=== PATIENT | female | born 1935 | race Caucasian/White ===

== ENCOUNTER → 2016-11-08 | Outpatient (CLI) | payer MEDICARE, BC ==
[~2016-11-08] MED LIST: ASPIR-LOW81 MG PO; ASPIRIN 32325 MG/TAB PO; ASPIRIN 81M81 MG/TA2 PO; BYSTOLIC2.5 MG PO; CALCIUM CITRATE1 TA2 PO; CALCIUM PLUS1 TA1 PO; CALTRATE 600 +1 TAB PO; CALTRATE PLUS1 TAB PO; CARDIZEM CD 12120 MG PO; CENTRUM SILVER1 CTB PO; CENTRUM SILVER1 TA1 PO; CLEOCIN HCL300 MG PO; CORDARONE200 MG/TAB PO; COUMADIN 3MG3 MG/TAB PO; FLAXSEED OIL1000 MG PO; LANOXIN 0.25M0.25 MG PO; LORTAB 5/500 501 TAB PO; NAPROSYN375 MG PO; NIASPAN 500MG500 MG PO; NORCO 325 MG-51 TAB PO; PACERONE400 MG PO; SUPER EPA 1201200 MG PO; SYNTHROID0.075 MG/T PO; TENEX1 MG PO; TENEX2 MG PO; XARELTO10 MG PO; ZETIA10 MG PO; welchol PO
== END ==
LOC: MC.RAD 13:16
DX: Z12.31 Encounter for screening mammogram for malignant neoplasm of breast (principal)

== ENCOUNTER → 2018-07-22 | Outpatient (CLI) | payer MEDICARE, BC | LOC: COL.RAD 13:53 | DX: R51 Headache (principal) ==

== ENCOUNTER → 2019-01-07 | Outpatient (CLI) | payer MEDICARE, BC | LOC: COL.RAD 12:50 | DX: S22.050A Wedge compression fracture of T5-T6 vertebra, initial encounter for closed fracture (principal) ==

== ENCOUNTER 2019-01-19 10:59 | Outpatient (CLI) | payer MEDICARE, BC ==
[2019-01-19] VITALS (7 sets, daily range): BP systolic 130–173; BP diastolic 63–86; PULSE 69–75; TEMP 97.8
[~2019-01-19] VITALS: Ht 152.5 cm; Wt 56.7 kg
[2019-01-19] MEDS ORDERED: [UNRECOGNIZED DRUG - OTHER] PO (11:50)
[2019-01-19] MEDS ORDERED: LEVODOPA PO (11:50)
[2019-01-19] MEDS ORDERED: TAMBOCOR50 MG PO (11:52)
[2019-01-19] MEDS ORDERED: MELATONIN5 M1 SL (11:53)
--- NOTE | 2019-01-19 12:45 | NUR ---
SEE MERGE REPORT FOR MEDICATION ADMINISTRATION TIMES WELL INTRA/POST SEDATION ASSESSMENTS.
--- NOTE | 2019-01-19 13:30 | NUR ---
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 VSS. Two bandaids to upper back CD&I.
--- NOTE | 2019-01-19 14:46 | NUR ---
INT discontinued intact. Discharge instructions given.
--- NOTE | 2019-01-19 15:00 | NUR ---
Transferred to private car by gilbert
== END 2019-01-19 15:02 | disposition home or self-care (01) ==
LOC: COL.CAR 10:59
DX: S22.050A Wedge compression fracture of T5-T6 vertebra, initial encounter for closed fracture (principal); Z90.710 Acquired absence of both cervix and uterus; Z88.1 Allergy status to other antibiotic agents; Z88.0 Allergy status to penicillin; Z88.8 Allergy status to other drugs, medicaments and biological substances; Z79.82 Long term (current) use of aspirin; I10 Essential (primary) hypertension; I48.91 Unspecified atrial fibrillation; M19.90 Unspecified osteoarthritis, unspecified site; G14 Postpolio syndrome; E03.9 Hypothyroidism, unspecified; E78.5 Hyperlipidemia, unspecified; I35.1 Nonrheumatic aortic (valve) insufficiency; Z90.722 Acquired absence of ovaries, bilateral; Z82.49 Family history of ischemic heart disease and other diseases of the circulatory system; Z80.0 Family history of malignant neoplasm of digestive organs; Z82.3 Family history of stroke; M54.2 Cervicalgia
CPT/HCPCS: J2250; J3010

== ENCOUNTER 2020-08-15 17:38 | Emergency (ER) | payer MEDICARE, BC ==
[~2020-08-15] VITALS: Ht 154.9 cm; Wt 61.8 kg
[~2020-08-15 17:38] MED LIST changes: +LEVODOPA PO; +MELATONIN5 M1 SL; +TAMBOCOR50 MG PO; +[UNRECOGNIZED DRUG - OTHER] PO
[2020-08-15 17:42] VITALS: TEMP 98
[2020-08-15 19:01] VITALS: BP 168/90; PULSE 78
== END 2020-08-15 19:03 | disposition home or self-care (01) ==
LOC: COL.ER 17:38
DX: S00.03XA Contusion of scalp, initial encounter (principal); G20 Parkinson's disease; Z88.0 Allergy status to penicillin; Z88.1 Allergy status to other antibiotic agents; Z88.8 Allergy status to other drugs, medicaments and biological substances; Z79.82 Long term (current) use of aspirin; W01.198A Fall on same level from slipping, tripping and stumbling with subsequent striking against other object, initial encounter; Y92.129 Unspecified place in nursing home as the place of occurrence of the external cause

== ENCOUNTER → 2021-10-09 | Outpatient (CLI) | payer MEDICARE, BC | LOC: ZCOL.LAB 16:46 | DX: N39.0 Urinary tract infection, site not specified (principal) ==

== ENCOUNTER → 2023-02-12 | Outpatient (CLI) | payer MEDICARE, BC ==
[~2023-02-12] MED LIST changes: +CARDIZEM CD 24240 MG PO; +CARDIZEM CD360 MG PO; +COMPLETE MULTI1 TAB PO; +CRANBERRY500 M3 PO; +DEBROX OT; +DULCOLAX S10 MG/SUPP RC; +ESTRACE0.1 MG/GM VG; +IMODIUM 2MG CAPS2 MG PO; +IPRATROPIUM BROM3 M1 IH; +LIDODERM 5% PATC1 EA TP; +MASON NATURAL2000 IU PO; +MELATONIN5 M1 PO; +MILK OF MA400 MG/52 PO; +MUCINEX 60600 MG/TA1 PO; +MYLANTA MAXIMU355 M1 PO; +OMNICEF 300MG300 MG PO; +PLAVIX 75MG TAB75 MG PO; +PROBIOTIC BLEN1 EACH PO; +SEROQUEL50 MG PO; +SINEMET 25/101 UDTAB PO; +SYNTHROID0.088 MG/T PO; +TAMBOCOR 1100 MG/TAB PO; +TYLENOL 325MG325 MG PO; +TYLENOL SU650 MG/SUP RC; +VOLTAREN GEL 1%1 TU TP; +ZADITOR 5 ML5 ML OP; +ZOLOFT 25MG25 MG PO; +ZOLOFT 50MG50 MG PO
[2023-02-12 10:05] LABS: BASO % 0.6 % (0.0-2.0); EOS # 0.3 K/mm3 (0.0-0.7); EOS % 4.1 % (0.0-4.0); GRAN # 4.3 K/mm3 (1.4-6.5); LYMPH # 1.2 K/mm3 (1.2-3.4); LYMPH % 18.9 % (20.0-51.0); MEAN CELL VOLUME 77 fl (80.0-100.0); MEAN CORPUSCULAR HGB CONC 29 g/dl (33.0-37.0); MEAN PLATELET VOLUME 9.2 fl (7.4-10.4); MONO # 0.5 K/mm3 (0.1-0.6); MONO % 7.9 % (1.7-9.3); PLATELET COUNT 406 K/mm3 (130-400); RED BLOOD COUNT 3.48 M/mm3 (4.10-5.30); REDCELL DISTRIBUTION WIDTH-CV 18.1 % (11.5-14.5)
[2023-02-12 10:16] LABS: HEMATOCRIT 26.8 % (37.0-47.0); HEMOGLOBIN 7.8 g/dl (12.5-16.0); MEAN CORPUSCULAR HEMOGLOBIN 22 pg (27-31)
[2023-02-12 10:17] LABS: ALBUMIN 3.2 gm/dL (3.4-4.8); BILIRUBIN,TOTAL 0.6 mg/dL (0.2-1.2); CALCIUM 8.6 mg/dL (8.4-10.2); CREATININE, serum 0.85 mg/dL (0.57-1.11); POTASSIUM 3.8 mmol/L (3.5-4.5); TOTAL PROTEIN 6.2 gm/dL (6.2-8.1)
[2023-02-12 10:29] LABS: TROPONIN-I 2.21 ng/mL (0.00-0.033)
[2023-02-13] VITALS (75 sets, daily range): O2SAT 90–98
[2023-02-14] VITALS (93 sets, daily range): O2SAT 94–98
== END ==
LOC: ZCOL.LAB 09:51
PROVIDERS: Internal Medicine
DX: D64.9 Anemia, unspecified (principal); I11.0 Hypertensive heart disease with heart failure; I50.22 Chronic systolic (congestive) heart failure

== ENCOUNTER → 2023-05-23 | Outpatient (REF) | payer MEDICARE, BC ==
[2023-05-23 16:49] LABS: BASO # 0.1 K/mm3 (0.0-0.2); EOS # 0.3 K/mm3 (0.0-0.7); EOS % 5.2 % (0.0-4.0); GRAN # 2.9 K/mm3 (1.4-6.5); GRAN % 54.7 % (42.2-75.2); HEMATOCRIT 39.2 % (37.0-47.0); HEMOGLOBIN 11.8 g/dl (12.5-16.0); LYMPH # 1.5 K/mm3 (1.2-3.4); LYMPH % 28.9 % (20.0-51.0); MEAN CELL VOLUME 90 fl (80.0-100.0); MEAN CORPUSCULAR HEMOGLOBIN 27 pg (27-31); MEAN CORPUSCULAR HGB CONC 30 g/dl (33.0-37.0); MEAN PLATELET VOLUME 10.1 fl (7.4-10.4); MONO # 0.5 K/mm3 (0.1-0.6); PLATELET COUNT 272 K/mm3 (130-400); RED BLOOD COUNT 4.38 M/mm3 (4.10-5.30); REDCELL DISTRIBUTION WIDTH-CV 25.7 % (11.5-14.5)
[2023-05-23 16:50] LABS: ALBUMIN 3.5 gm/dL (3.4-4.8); BILIRUBIN,TOTAL 0.6 mg/dL (0.2-1.2); CALCIUM 9.5 mg/dL (8.4-10.2); CHOLESTEROL RISK RATIO 4.1; CREATININE, serum 0.79 mg/dL (0.57-1.11); POTASSIUM 4.3 mmol/L (3.5-4.5); TOTAL PROTEIN 6.4 gm/dL (6.2-8.1); TSH w REFLEX 6.992 uIU/mL (0.350-4.940)
[2023-05-24 18:33] LABS: T3 TOTAL 54 ng/dL (35-193)
== END ==
LOC: ZCOL.LAB 15:34
PROVIDERS: Internal Medicine
DX: I10 Essential (primary) hypertension (principal); E78.5 Hyperlipidemia, unspecified; E55.9 Vitamin D deficiency, unspecified; E03.9 Hypothyroidism, unspecified

== ENCOUNTER → 2023-07-25 | Outpatient (REF) | payer MEDICARE, BC | LOC: ZCOL.LAB 11:55 | DX: E03.9 Hypothyroidism, unspecified (principal) ==